=== PATIENT | female | born 1965 | race African-American/Black ===

== ENCOUNTER 2017-01-24 20:51 | Emergency (ER) | payer SELFPAY ==
[~2017-01-24] VITALS: Ht 157.5 cm; Wt 107.0 kg
[~2017-01-24 20:51] MED LIST: INSU100I11 SQ; INSU100V8 SQ
--- NOTE | 2017-01-24 20:53 | ED.ADGEN ---
Past History Past Medical History: No Pertinent History Past Surgical History: No Surgical History Smoking: Non-smoker Alcohol Use: None Drug Use: None Adult General Chief Complaint Chief Complaint Left foot pain [facility] HPI Patient is a 51 year old for can [place] female who presents with left foot pain. She states it started hurting when he 2 days ago. He states it hurts in the top aspect of her foot and maybe the medial aspect of her ankle. She denies any history of trauma. She has a change her shoes. She does have diabetes. She denies any fevers chills nausea or vomiting. She denies any rash. She thinks the top aspect of her foot is swollen. Review of Systems Review of Systems Constitutional: Denies fever or chills [] Eyes: Denies change in visual acuity, redness, or eye pain [] HENT: Denies nasal congestion or sore throat [] Respiratory: Denies cough or shortness of breath [] Cardiovascular: No additional information not addressed in HPI [] GI: Denies abdominal pain, nausea, vomiting, bloody stools or diarrhea [] : Denies dysuria or hematuria [] Musculoskeletal: Denies back pain, positive for left foot pain. Integument: Denies rash or skin lesions [] Neurologic: Denies headache, focal weakness or sensory changes [] Endocrine: Denies polyuria or polydipsia [] Allergies Allergies Allergies Coded Allergies Type Severity Reaction Last Updated Verified No Known Drug Allergies 01/24/17 No Physical Exam Physical Exam Constitutional: Well developed, well nourished, no acute distress, non-toxic appearance. [] HENT: Normocephalic, atraumatic, bilateral external ears normal, oropharynx moist, no oral exudates, nose normal. [] Eyes: PERRLA, EOMI, conjunctiva normal, no discharge. [] Neck: Normal range of motion, no tenderness, supple, no stridor. [] Cardiovascular:Heart rate regular rhythm, no murmur [] Lungs & Thorax: Bilateral breath sounds clear to auscultation [] Abdomen: Bowel sounds normal, soft, no tenderness, no masses, no pulsatile masses. [] Skin: Warm, dry, no erythema, no rash. [] Back: No tenderness, no CVA tenderness. [] Extremities: Tender to palpation on the dorsal surface of left foot and medial aspect of his left ankle, no ecchymosis, no erythema, no cyanosis, no clubbing, ROM intact, no edema. No calf tenderness or cords appreciated, dorsal pedis pulse 2+ bilaterally Neurologic: Alert and oriented X 3, normal motor function, normal sensory function, no focal deficits noted. [] Psychologic: Affect normal, judgement normal, mood normal. [] Current Patient Data Vital Signs Vital Signs Date Time Temp Pulse Resp B/P (MAP) Pulse Ox O2 Delivery O2 Flow Rate FiO2 01/24/17 21:00 97.9 85 18 99 Room Air EKG EKG [] Radiology/Procedures Radiology/Procedures Reviews of the left foot does not show any bony abnormalities, fractures, dislocations, foreign bodies, as interpreted by me. Course & Med Decision Making Course & Med Decision Making Pertinent Labs and Imaging studies reviewed. (See chart for details) X-rays did not show any acute abnormalities. We will discharge with [place] and a work no. Patient's follow-up primary care physician, return ER for fevers, rash , swelling or other concerns. Final Impression Final Impression Foot pain [] Problems: Dragon Disclaimer Dragon Disclaimer This electronic medical record was generated, in whole or in part, using a voice recognition dictation system. RUDY WOLFE MD Jan 24, 2017 20:52
[2017-01-24 21:00] VITALS: BP 169/92
[2017-01-24] MEDS ORDERED: ACET500T68 PO (21:22)
[2017-01-24] MEDS ORDERED: METF500T4 PO (21:22)
[2017-01-24] MEDS ORDERED: INSU100V13 SQ (21:22)
[2017-01-24] MEDS ORDERED: INSU100V31 SQ (21:22)
[2017-01-24] MEDS ORDERED: HYDR-971 PO (22:16)
[2017-01-24] MEDS ORDERED: HYDROcodon/IBUPROFEN 7.5/200MG 1 TAB TABLET PO ONE (23:00)
--- NOTE | 2017-01-25 07:39 | RAD ---
Indication: Left lateral foot pain. Time of exam 2159 hours. 3 views of the left foot were obtained. The metatarsals are intact. The phalanges are intact. Midfoot is unremarkable. There is a large plantar calcaneal spur. No fractures are seen. Impression: No acute bony abnormality is detected.
== END 2017-01-24 22:20 | disposition home or self-care (01) ==
LOC: ER 20:51
DX: M79.672 Pain in left foot (principal)
CPT/HCPCS: 73630; 99284

== ENCOUNTER 2018-05-10 21:35 | Emergency (ER) | payer OTHER ==
[~2018-05-10] VITALS: Ht 157.5 cm; Wt 106.2 kg
[2018-05-10 21:35] VITALS: BP 146/95
[~2018-05-10 21:35] MED LIST changes: +ACET500T68 PO; +HYDR-971 PO; +INSU100V13 SQ; +INSU100V31 SQ; +METF500T16 PO
[2018-05-10] MEDS ORDERED: CEPH-264 PO (22:55)
[2018-05-10] MEDS ORDERED: MUPI15CR TP (22:55)
[2018-05-10] MEDS ORDERED: CEPHALEXIN 250 MG CAPSULE PO ONE (23:30)
--- NOTE | 2018-05-11 00:25 | RAD ---
Three-view left foot radiographs 05/10/2018 Clinical history: Injury to left foot one week ago with pain. AP, lateral and oblique digital radiographs of the left foot were obtained. No fracture or dislocation of the left foot is seen. No radiopaque foreign body is noted. IMPRESSION: No fracture or dislocation left foot is seen. Electronically signed by: Paulo Burris MD (05/11/2018 12:21 AM) [facility]
--- NOTE | 2018-05-11 03:15 | ED.ADGEN ---
Past History Past Medical History: Asthma, Depression, Diabetes, Hypertension Past Surgical History: , Hysterectomy Smoking: Non-smoker Alcohol Use: None Drug Use: None Adult General Chief Complaint Chief Complaint Left foot pain HPI HPI Patient is a 52-year-old son dependent diabetic presents with left foot pain/ injury after dropping weight onto foot 2 weeks ago. Patient reports continued with ambulation soreness lateral foot/toes. Patient has not seen her PCP for her current symptoms. On exam, the patient soft tissue tenderness over third and fourth the tarsal phalangeal joints with bruising. I swelling in the erythema. Patient has cracking between toes possibly consistent and athlete's foot. No induration purulent drainage diabetic ulcers.[] Review of Systems Review of Systems Review symptoms as per history of present illness. All other review symptoms are negative.] All other systems were reviewed and found to be within normal limits, except as documented in this note. Current Medications Current Medications Current Medications Medications (Trade) Dose Ordered Sig/Arnel Start Time Stop Time Status Last Admin Dose Admin Cephalexin HCl (Keflex) 500 mg 1X ONCE 05/10/18 23:30 05/10/18 23:30 DC Allergies Allergies Allergies Coded Allergies Type Severity Reaction Last Updated Verified No Known Drug Allergies 01/24/17 No Physical Exam Physical Exam Constitutional: Well developed, well nourished, no acute distress, non-toxic appearance. [] HENT: Normocephalic, atraumatic, bilateral external ears normal, oropharynx moist, no oral exudates, nose normal.() Extremities: L Foot, soft tissue tenderness over third and fourth the tarsal phalangeal joints with bruising. Mild swelling in the erythema. No deformity, Patient has cracking between toes possibly consistent and athlete's foot. No induration purulent drainage diabetic ulcers[] Neurologic: Alert and oriented X 3, left foot, no motor weakness or loss of sensation.. [] Psychologic: Affect normal, judgement normal, mood normal. [] Current Patient Data Vital Signs Vital Signs Date Time Temp Pulse Resp B/P (MAP) Pulse Ox O2 Delivery O2 Flow Rate FiO2 05/10/18 21:35 97.2 92 20 97 Room Air EKG EKG [] Radiology/Procedures Radiology/Procedures [X-ray left foot: no fx.] Course & Med Decision Making Course & Med Decision Making Pertinent Labs and Imaging studies reviewed. (See chart for details) [Left foot injury w/o fx, concern for possible cellulitis. ] Final Impression Final Impression [1. left foot cellulitis] Dragattila Disclaimer Dragon Disclaimer This electronic medical record was generated, in whole or in part, using a voice recognition dictation system. HAILEY CESPEDES DO May 11, 2018 03:15
== END 2018-05-10 23:05 | disposition home or self-care (01) ==
LOC: ER 21:35
DX: L03.116 Cellulitis of left lower limb (principal); S90.122A Contusion of left lesser toe(s) without damage to nail, initial encounter; J45.909 Unspecified asthma, uncomplicated; E11.9 Type 2 diabetes mellitus without complications; I10 Essential (primary) hypertension; F32.9 Major depressive disorder, single episode, unspecified; W20.8XXA Other cause of strike by thrown, projected or falling object, initial encounter; Y93.89 Activity, other specified; Y92.89 Other specified places as the place of occurrence of the external cause; Y99.8 Other external cause status
CPT/HCPCS: 73630; 99284

== ENCOUNTER 2018-09-14 03:53 | Inpatient (IN) | payer OTHER ==
[2018-09-14] VITALS (9 sets, daily range): BP systolic 107–160; BP diastolic 65–99
[~2018-09-14] VITALS: Ht 157.5 cm; Wt 97.5 kg
[~2018-09-14 03:53] MED LIST changes: +CEPH-264 PO; +HYDR-3165 PO; -HYDR-971 PO; +MUPI15CR TP
--- NOTE | 2018-09-14 03:57 | ED.ADGEN ---
Past History Past Medical History: Asthma, Depression, Diabetes, Hypertension Past Surgical History: , Hysterectomy Smoking: Non-smoker Alcohol Use: None Drug Use: None Adult General Chief Complaint Chief Complaint "....I feel like am going to ... I am vomiting...my sugars are high ...my blood pressures high.. I feel terrible HPI HPI Patient is a 52 year old female [employer] [facility] who presents with above hx and complaints nausea, vomiting, hyperglycemia and accelerated HTN. Patient states she has been compliant with her diabetic medications and her diabetic diet. Is around ill individuals at the [employer] where she works. Patient states she has been also compliant with her hypertensive meds. They get a flu vaccination this fall. No recent travel.History of intake of bad food. Patient reports she vomited several times tonight and currently having dry heaves. She also had 3 episodes of diarrhea. Patient normally follows with at [facility] Patient has a known history of coronary artery disease, diabetes, hypertension, hyperlipidemia, and diabetic neuropathy. Review of Systems Review of Systems Constitutional: Complaints of fever Eyes: Denies change in visual acuity, redness, or eye pain [] HENT: Denies nasal congestion or sore throat [] Respiratory: Complaints of shortness of breath [] Cardiovascular: No additional information not addressed in HPI [] GI: Complaints abdominal pain, nausea, vomiting, : Denies dysuria or hematuria [] Musculoskeletal: Denies back pain or joint pain [] Integument: Denies rash or skin lesions [] Neurologic: Denies headache, focal weakness or sensory changes [] Endocrine: Hx polyuria or polydipsia [] All other systems were reviewed and found to be within normal limits, except as documented in this note. Family History Family History DM, HTN Current Medications Current Medications Current Medications Medications (Trade) Dose Ordered Sig/Arnel Start Time Stop Time Status Last Admin Dose Admin Acetaminophen (Tylenol) 650 mg PRN Q4HRS PRN 09/14/18 04:30 09/15/18 04:29 Clonidine HCl (Catapres Tts-2) 1 patch 1X ONCE 09/14/18 04:30 09/14/18 04:31 DC 09/14/18 04:35 1 PATCH Clonidine HCl (Catapres) 0.2 mg 1X ONCE 09/14/18 04:30 09/14/18 04:31 DC 09/14/18 04:36 0.2 MG Insulin Human Regular (HumuLIN R VIAL) 10 unit 1X ONCE 09/14/18 05:00 09/14/18 05:01 DC 09/14/18 04:39 10 UNIT Insulin Human Regular 150 unit/ Sodium Chloride 151.5 ml @ 0 mls/hr 1X ONCE 09/14/18 04:30 09/14/18 04:31 UNV Lactated Ringer's 1,000 ml @ 100 mls/hr Q10H 09/14/18 04:30 09/14/18 14:29 09/14/18 06:29 100 MLS/HR Magnesium Sulfate 50 ml @ 25 mls/hr 1X ONCE 09/14/18 06:00 09/14/18 07:59 09/14/18 06:24 25 MLS/HR Ondansetron HCl (Zofran) 4 mg PRN Q4HRS PRN 09/14/18 04:30 09/15/18 04:29 Sodium Chloride 1,000 ml @ 1,000 mls/hr 1X ONCE 09/14/18 06:00 09/14/18 06:59 DC 09/14/18 05:47 1,000 MLS/HR See nursing for home meds Allergies Allergies Allergies Coded Allergies Type Severity Reaction Last Updated Verified No Known Drug Allergies 01/24/17 No Physical Exam Physical Exam Constitutional: in acute distress, non-toxic appearance. [] HENT: Normocephalic, atraumatic, bilateral external ears normal, oropharynx dry , no oral exudates, nose normal. [] Eyes: PERRLA, EOMI, conjunctiva normal, no discharge. [] Neck: Normal range of motion, no tenderness, supple, no stridor. [] Cardiovascular:Tachycardia Heart rate regular rhythm, no murmur []PMI to Lt. Lungs & Thorax: Bilateral breath sounds equal at apexes with scattered wheezes on auscultation [] Abdomen: Bowel sounds hyperactive, soft, generalized tenderness, no masses, no pulsatile masses. [Obese. Old scar. Skin: Warm, dry, no erythema, no rash. [] Back: No tenderness, no CVA tenderness. [] Extremities: No tenderness, no cyanosis, no clubbing, ROM intact, trace ankle edema. [] Neurologic: Alert and oriented X 3, normal motor function, normal sensory function, no focal deficits noted. Decreased plantar sensation. Psychologic: Affect anxious, judgement normal, mood depressed. Current Patient Data Vital Signs Vital Signs Date Time Temp Pulse Resp B/P (MAP) Pulse Ox O2 Delivery O2 Flow Rate FiO2 09/14/18 07:11 93 18 137/72 (93) 96 Room Air 09/14/18 04:05 98.4 Lab Results Laboratory Tests Test 09/14/18 04:10 09/14/18 04:16 09/14/18 04:17 09/14/18 04:42 Influenza Type A (Rapid) Negative (NEGATIVE) Influenza Type B (Rapid) Negative (NEGATIVE) White Blood Count 10.6 x10^3/uL (4.0-11.0) Red Blood Count 5.73 x10^6/uL (3.50-5.40) H Hemoglobin 15.2 g/dL (12.0-15.5) Hematocrit 45.7 % (36.0-47.0) Mean Corpuscular Volume 80 fL (79-100) Mean Corpuscular Hemoglobin 27 pg (25-35) Mean Corpuscular Hemoglobin Concent 33 g/dL (31-37) Red Cell Distribution Width 12.8 % (11.5-14.5) Platelet Count 297 x10^3/uL (140-400) Neutrophils (%) (Auto) 75 % (31-73) H Lymphocytes (%) (Auto) 17 % (24-48) L Monocytes (%) (Auto) 8 % (0-9) Eosinophils (%) (Auto) 1 % (0-3) Basophils (%) (Auto) 1 % (0-3) Neutrophils # (Auto) 7.9 x10^3uL (1.8-7.7) H Lymphocytes # (Auto) 1.7 x10^3/uL (1.0-4.8) Monocytes # (Auto) 0.8 x10^3/uL (0.0-1.1) Eosinophils # (Auto) 0.1 x10^3/uL (0.0-0.7) Basophils # (Auto) 0.0 x10^3/uL (0.0-0.2) Prothrombin Time 10.0 SEC (9.4-11.4) Prothrombin Time INR 1.0 (0.9-1.1) PTT 24 SEC (23-33) D-Dimer (Donna) 0.20 mg/L (0.00-0.50) Maternal Serum HCG Beta Subunit 2 mIU/mL (0-6) Sodium Level 133 mmol/L (136-145) L Potassium Level 3.7 mmol/L (3.5-5.1) Chloride Level 94 mmol/L (98-107) L Carbon Dioxide Level 27 mmol/L (21-32) Anion Gap 12 (6-14) Blood Urea Nitrogen 11 mg/dL (7-20) Creatinine 0.9 mg/dL (0.6-1.0) Estimated GFR (Cockcroft-Gault) 80.2 Glucose Level 407 mg/dL (70-99) H Calcium Level 9.5 mg/dL (8.5-10.1) Magnesium Level 1.7 mg/dL (1.8-2.4) L Total Bilirubin 0.4 mg/dL (0.2-1.0) Direct Bilirubin 0.1 mg/dL (0.0-0.2) Aspartate Amino Transferase (AST) 15 U/L (15-37) Alanine Aminotransferase (ALT) 44 U/L (14-59) Alkaline Phosphatase 113 U/L (46-116) Creatine Kinase 93 U/L (26-192) Creatine Kinase MB (Mass) 0.7 ng/mL (0.0-3.6) Creatine Kinase MB Relative Index 0.8 % (0-4) Troponin I Quantitative < 0.017 ng/mL (0-0.055) KJ-Zvy-[id number]-Type Natriuretic Peptide 55 pg/mL (0-124) Total Protein 8.4 g/dL (6.4-8.2) H Albumin 3.8 g/dL (3.4-5.0) Lipase 80 U/L (73-393) Glucose (Fingerstick) 404 mg/dL (70-99) H Lactic Acid Level 3.2 mmol/L (0.4-2.0) H Test 09/14/18 06:08 09/14/18 06:58 Glucose (Fingerstick) 271 mg/dL (70-99) H 225 mg/dL (70-99) H EKG EKG I interpretation EKG shows a sinus rhythm at 94 bpm. No acute morphology appreciated.[] Radiology/Procedures Radiology/Procedures My interpretation of acute abdomen film shows no free air in the diaphragm. No significant cardiopulmonary changes. Nonspecific bowel gas pattern. Does have stool in right colon.[] Course & Med Decision Making Course & Med Decision Making Pertinent Labs and Imaging studies reviewed. (See chart for details) Discussed presentation, testing and tx. plan with Dr. Cain. Will admit for hydration and further tx. [] Final Impression Final Impression 1. Nausea and Vomiting 2. Accelerated Hypertension 3. DM - Hyperglycemia[] 404 glu 4. Abdomen Pain 5. Hypo-magnesium 1.7 6. Elevated Lactic Acid Dragon Disclaimer Dragon Disclaimer This electronic medical record was generated, in whole or in part, using a voice recognition dictation system. Dragon Disclaimer This chart was dictated in whole or in part using Voice Recognition software in a busy, high-work load, and often noisy Emergency Department environment. It may contain unintended and wholly unrecognized errors or omissions. Dragon Disclaimer This chart was dictated in whole or in part using Voice Recognition software in a busy, high-work load, and often noisy Emergency Department environment. It may contain unintended and wholly unrecognized errors or omissions. Discharge Summary Brief Hospital Course Allergies Allergies Coded Allergies Type Severity Reaction Last Updated Verified No Known Drug Allergies 01/24/17 No Vital Signs Vital Signs Date Time Temp Pulse Resp B/P (MAP) Pulse Ox O2 Delivery O2 Flow Rate FiO2 09/14/18 07:11 93 18 137/72 (93) 96 Room Air 09/14/18 04:05 98.4 Lab Results Laboratory Tests Test 09/14/18 04:10 09/14/18 04:16 09/14/18 04:17 09/14/18 04:42 Influenza Type A (Rapid) Negative (NEGATIVE) Influenza Type B (Rapid) Negative (NEGATIVE) White Blood Count 10.6 x10^3/uL (4.0-11.0) Red Blood Count 5.73 x10^6/uL (3.50-5.40) Hemoglobin 15.2 g/dL (12.0-15.5) Hematocrit 45.7 % (36.0-47.0) Mean Corpuscular Volume 80 fL (79-100) Mean Corpuscular Hemoglobin 27 pg (25-35) Mean Corpuscular Hemoglobin Concent 33 g/dL (31-37) Red Cell Distribution Width 12.8 % (11.5-14.5) Platelet Count 297 x10^3/uL (140-400) Neutrophils (%) (Auto) 75 % (31-73) Lymphocytes (%) (Auto) 17 % (24-48) Monocytes (%) (Auto) 8 % (0-9) Eosinophils (%) (Auto) 1 % (0-3) Basophils (%) (Auto) 1 % (0-3) Neutrophils # (Auto) 7.9 x10^3uL (1.8-7.7) Lymphocytes # (Auto) 1.7 x10^3/uL (1.0-4.8) Monocytes # (Auto) 0.8 x10^3/uL (0.0-1.1) Eosinophils # (Auto) 0.1 x10^3/uL (0.0-0.7) Basophils # (Auto) 0.0 x10^3/uL (0.0-0.2) Prothrombin Time 10.0 SEC (9.4-11.4) Prothromb Time International Ratio 1.0 (0.9-1.1) Activated Partial Thromboplast Time 24 SEC (23-33) D-Dimer (Donna) 0.20 mg/L (0.00-0.50) Maternal Serum HCG Beta Subunit 2 mIU/mL (0-6) Sodium Level 133 mmol/L (136-145) Potassium Level 3.7 mmol/L (3.5-5.1) Chloride Level 94 mmol/L (98-107) Carbon Dioxide Level 27 mmol/L (21-32) Anion Gap 12 (6-14) Blood Urea Nitrogen 11 mg/dL (7-20) Creatinine 0.9 mg/dL (0.6-1.0) Estimated GFR (Cockcroft-Gault) 80.2 Glucose Level 407 mg/dL (70-99) Calcium Level 9.5 mg/dL (8.5-10.1) Magnesium Level 1.7 mg/dL (1.8-2.4) Total Bilirubin 0.4 mg/dL (0.2-1.0) Direct Bilirubin 0.1 mg/dL (0.0-0.2) Aspartate Amino Transf (AST/SGOT) 15 U/L (15-37) Alanine Aminotransferase (ALT/SGPT) 44 U/L (14-59) Alkaline Phosphatase 113 U/L (46-116) Creatine Kinase 93 U/L (26-192) Creatine Kinase MB (Mass) 0.7 ng/mL (0.0-3.6) Creatine Kinase MB Relative Index 0.8 % (0-4) Troponin I Quantitative < 0.017 ng/mL (0-0.055) OS-Uvx-F-Type Natriuretic Peptide 55 pg/mL (0-124) Total Protein 8.4 g/dL (6.4-8.2) Albumin 3.8 g/dL (3.4-5.0) Lipase 80 U/L (73-393) Glucose (Fingerstick) 404 mg/dL (70-99) Lactic Acid Level 3.2 mmol/L (0.4-2.0) Test 09/14/18 06:08 09/14/18 06:58 Glucose (Fingerstick) 271 mg/dL (70-99) 225 mg/dL (70-99) Brief Hospital Course Ms. Espino is a 52 old female who presented with Hyperglycemia, Accelerated HTN, - Admitted to Dr. Cain Discharge Information Condition at Discharge: Improved, Stable Dischare Medications Current Medications Lactated Ringer's 1,000 ml @ 100 mls/hr Q10H IV Last administered on at 06:29; Admin Dose 100 MLS/HR; Start 09/14/18 at 04:30; Stop 09/14/18 at 14: 29 Ondansetron HCl (Zofran) 4 mg 1X ONCE IV Last administered on 09/14/18at 04:36 ; Admin Dose 4 MG; Start 09/14/18 at 04:30; Stop 09/14/18 at 04:31; Status DC Clonidine HCl (Catapres) 0.2 mg 1X ONCE PO Last administered on 09/14/18at 04: 36; Admin Dose 0.2 MG; Start 09/14/18 at 04:30; Stop 09/14/18 at 04:31; Status DC Clonidine HCl (Catapres Tts-2) 1 patch 1X ONCE TD Last administered on at 04:35; Admin Dose 1 PATCH; Start 09/14/18 at 04:30; Stop 09/14/18 at 04:31 ; Status DC Insulin Human Regular 150 unit/ Sodium Chloride 151.5 ml @ 0 mls/hr 1X ONCE IV Last administered on 09/14/18at 05:03; Admin Dose 4 MLS/HR; Start 09/14/18 at 05:00; Stop 09/14/18 at 05:01; Status DC Insulin Human Regular (HumuLIN R VIAL) 10 unit 1X ONCE IV Last administered on 09/14/18at 04:39; Admin Dose 10 UNIT; Start 09/14/18 at 05:00; Stop 09/14/18 at 05:01; Status DC Ondansetron HCl (Zofran) 4 mg PRN Q4HRS PRN IV NAUSEA/VOMITING; Start 09/14/18 at 04:30; Stop 09/15/18 at 04:29 Acetaminophen (Tylenol) 650 mg PRN Q4HRS PRN PO FEVER; Start 09/14/18 at 04:30 ; Stop 09/15/18 at 04:29 Insulin Human Regular 150 unit/ Sodium Chloride 151.5 ml @ 0 mls/hr 1X ONCE IV ; Start 09/14/18 at 04:30; Stop 09/14/18 at 04:31; Status UNV Sodium Chloride 1,000 ml @ 1,000 mls/hr 1X STAT IV Last administered on at 04:34; Admin Dose 5 MLS/HR; Start 09/14/18 at 04:30; Stop 09/14/18 at 04:37 ; Status DC Sodium Chloride 1,000 ml @ 1,000 mls/hr 1X ONCE IV Last administered on at 04:41; Admin Dose 1,000 MLS/HR; Start 09/14/18 at 04:45; Stop 09/14/18 at 05:44; Status DC Sodium Chloride 150 ml @ As Directed STK-MED ONCE .ROUTE ; Start 09/14/18 at 04 :47; Stop 09/14/18 at 04:49; Status DC Sodium Chloride 1,000 ml @ 1,000 mls/hr 1X ONCE IV Last administered on at 05:47; Admin Dose 1,000 MLS/HR; Start 09/14/18 at 06:00; Stop 09/14/18 at 06:59; Status DC Magnesium Sulfate 50 ml @ 25 mls/hr 1X ONCE IV Last administered on 09/14/18at 06:24; Admin Dose 25 MLS/HR; Start 09/14/18 at 06:00; Stop 09/14/18 at 07:59 Active Scripts Active Bactroban (Mupirocin Calcium) 15 Gm Cream..g. 1 Cecile TP TID Keflex (Cephalexin) 500 Mg Capsule 1 Cap PO TID [place] 5-325 Tablet (Hydrocodone Bit/Acetaminophen) 1 Each Tablet 1-2 Tab PO Q6HRS PRN Reported Acetaminophen 500 Mg Tablet 1,000 Mg PO Q6HRS PRN Metformin Hcl 500 Mg Tablet 500 Mg PO BIDWMEALS Levemir (Insulin Detemir) 100 Unit/1 Ml Vial 50 Unit SQ HS Novolog (Insulin Aspart) 100 Unit/1 Ml Vial 30 Unit SQ TIDAC Discharge Summary Brief Hospital Course Allergies Allergies Coded Allergies Type Severity Reaction Last Updated Verified No Known Drug Allergies 01/24/17 No Vital Signs Vital Signs Date Time Temp Pulse Resp B/P (MAP) Pulse Ox O2 Delivery O2 Flow Rate FiO2 09/14/18 07:11 93 18 137/72 (93) 96 Room Air 09/14/18 04:05 98.4 Lab Results Laboratory Tests Test 09/14/18 04:10 09/14/18 04:16 09/14/18 04:17 09/14/18 04:42 Influenza Type A (Rapid) Negative (NEGATIVE) Influenza Type B (Rapid) Negative (NEGATIVE) White Blood Count 10.6 x10^3/uL (4.0-11.0) Red Blood Count 5.73 x10^6/uL (3.50-5.40) Hemoglobin 15.2 g/dL (12.0-15.5) Hematocrit 45.7 % (36.0-47.0) Mean Corpuscular Volume 80 fL (79-100) Mean Corpuscular Hemoglobin 27 pg (25-35) Mean Corpuscular Hemoglobin Concent 33 g/dL (31-37) Red Cell Distribution Width 12.8 % (11.5-14.5) Platelet Count 297 x10^3/uL (140-400) Neutrophils (%) (Auto) 75 % (31-73) Lymphocytes (%) (Auto) 17 % (24-48) Monocytes (%) (Auto) 8 % (0-9) Eosinophils (%) (Auto) 1 % (0-3) Basophils (%) (Auto) 1 % (0-3) Neutrophils # (Auto) 7.9 x10^3uL (1.8-7.7) Lymphocytes # (Auto) 1.7 x10^3/uL (1.0-4.8) Monocytes # (Auto) 0.8 x10^3/uL (0.0-1.1) Eosinophils # (Auto) 0.1 x10^3/uL (0.0-0.7) Basophils # (Auto) 0.0 x10^3/uL (0.0-0.2) Prothrombin Time 10.0 SEC (9.4-11.4) Prothromb Time International Ratio 1.0 (0.9-1.1) Activated Partial Thromboplast Time 24 SEC (23-33) D-Dimer (Donna) 0.20 mg/L (0.00-0.50) Maternal Serum HCG Beta Subunit 2 mIU/mL (0-6) Sodium Level 133 mmol/L (136-145) Potassium Level 3.7 mmol/L (3.5-5.1) Chloride Level 94 mmol/L (98-107) Carbon Dioxide Level 27 mmol/L (21-32) Anion Gap 12 (6-14) Blood Urea Nitrogen 11 mg/dL (7-20) Creatinine 0.9 mg/dL (0.6-1.0) Estimated GFR (Cockcroft-Gault) 80.2 Glucose Level 407 mg/dL (70-99) Calcium Level 9.5 mg/dL (8.5-10.1) Magnesium Level 1.7 mg/dL (1.8-2.4) Total Bilirubin 0.4 mg/dL (0.2-1.0) Direct Bilirubin 0.1 mg/dL (0.0-0.2) Aspartate Amino Transf (AST/SGOT) 15 U/L (15-37) Alanine Aminotransferase (ALT/SGPT) 44 U/L (14-59) Alkaline Phosphatase 113 U/L (46-116) Creatine Kinase 93 U/L (26-192) Creatine Kinase MB (Mass) 0.7 ng/mL (0.0-3.6) Creatine Kinase MB Relative Index 0.8 % (0-4) Troponin I Quantitative < 0.017 ng/mL (0-0.055) OB-Jem-U-Type Natriuretic Peptide 55 pg/mL (0-124) Total Protein 8.4 g/dL (6.4-8.2) Albumin 3.8 g/dL (3.4-5.0) Lipase 80 U/L (73-393) Glucose (Fingerstick) 404 mg/dL (70-99) Lactic Acid Level 3.2 mmol/L (0.4-2.0) Test 09/14/18 06:08 09/14/18 06:58 Glucose (Fingerstick) 271 mg/dL (70-99) 225 mg/dL (70-99) Brief Hospital Course Ms. Espino is a 52 old female who presented with accelerated HTN, [place], Hyperglycemia.. Admitted to Dr. Cain. Discharge Information Condition at Discharge: Improved, Stable Dischare Medications Current Medications Lactated Ringer's 1,000 ml @ 100 mls/hr Q10H IV Last administered on at 06:29; Admin Dose 100 MLS/HR; Start 09/14/18 at 04:30; Stop 09/14/18 at 14: 29 Ondansetron HCl (Zofran) 4 mg 1X ONCE IV Last administered on 09/14/18at 04:36 ; Admin Dose 4 MG; Start 09/14/18 at 04:30; Stop 09/14/18 at 04:31; Status DC Clonidine HCl (Catapres) 0.2 mg 1X ONCE PO Last administered on 09/14/18at 04: 36; Admin Dose 0.2 MG; Start 09/14/18 at 04:30; Stop 09/14/18 at 04:31; Status DC Clonidine HCl (Catapres Tts-2) 1 patch 1X ONCE TD Last administered on at 04:35; Admin Dose 1 PATCH; Start 09/14/18 at 04:30; Stop 09/14/18 at 04:31 ; Status DC Insulin Human Regular 150 unit/ Sodium Chloride 151.5 ml @ 0 mls/hr 1X ONCE IV Last administered on 09/14/18at 05:03; Admin Dose 4 MLS/HR; Start 09/14/18 at 05:00; Stop 09/14/18 at 05:01; Status DC Insulin Human Regular (HumuLIN R VIAL) 10 unit 1X ONCE IV Last administered on 09/14/18at 04:39; Admin Dose 10 UNIT; Start 09/14/18 at 05:00; Stop 09/14/18 at 05:01; Status DC Ondansetron HCl (Zofran) 4 mg PRN Q4HRS PRN IV NAUSEA/VOMITING; Start 09/14/18 at 04:30; Stop 09/15/18 at 04:29 Acetaminophen (Tylenol) 650 mg PRN Q4HRS PRN PO FEVER; Start 09/14/18 at 04:30 ; Stop 09/15/18 at 04:29 Insulin Human Regular 150 unit/ Sodium Chloride 151.5 ml @ 0 mls/hr 1X ONCE IV ; Start 09/14/18 at 04:30; Stop 09/14/18 at 04:31; Status UNV Sodium Chloride 1,000 ml @ 1,000 mls/hr 1X STAT IV Last administered on at 04:34; Admin Dose 5 MLS/HR; Start 09/14/18 at 04:30; Stop 09/14/18 at 04:37 ; Status DC Sodium Chloride 1,000 ml @ 1,000 mls/hr 1X ONCE IV Last administered on at 04:41; Admin Dose 1,000 MLS/HR; Start 09/14/18 at 04:45; Stop 09/14/18 at 05:44; Status DC Sodium Chloride 150 ml @ As Directed STK-MED ONCE .ROUTE ; Start 09/14/18 at 04 :47; Stop 09/14/18 at 04:49; Status DC Sodium Chloride 1,000 ml @ 1,000 mls/hr 1X ONCE IV Last administered on at 05:47; Admin Dose 1,000 MLS/HR; Start 09/14/18 at 06:00; Stop 09/14/18 at 06:59; Status DC Magnesium Sulfate 50 ml @ 25 mls/hr 1X ONCE IV Last administered on 09/14/18at 06:24; Admin Dose 25 MLS/HR; Start 09/14/18 at 06:00; Stop 09/14/18 at 07:59 Active Scripts Active Bactroban (Mupirocin Calcium) 15 Gm Cream..g. 1 Cecile TP TID Keflex (Cephalexin) 500 Mg Capsule 1 Cap PO TID [place] 5-325 Tablet (Hydrocodone Bit/Acetaminophen) 1 Each Tablet 1-2 Tab PO Q6HRS PRN Reported Acetaminophen 500 Mg Tablet 1,000 Mg PO Q6HRS PRN Metformin Hcl 500 Mg Tablet 500 Mg PO BIDWMEALS Levemir (Insulin Detemir) 100 Unit/1 Ml Vial 50 Unit SQ HS Novolog (Insulin Aspart) 100 Unit/1 Ml Vial 30 Unit SQ TIDAC SRUTHI WEBB MD Sep 14, 2018 03:57
[2018-09-14] MEDS: IV RINGERS SOLUTION,LACTATED 1,000 ML IV SCH ×2 (04:25→06:29)
[2018-09-14] MEDS ORDERED: IV NORMAL SALINE 1,000ML 1,000 ML IV STA (04:30)
[2018-09-14] MEDS ORDERED: ONDANSETRON PF 4 MG/2 ML VIAL. IV ONE (04:30)
[2018-09-14] MEDS ORDERED: INSULIN REGULAR VIAL 150 UNIT in 0.9 % SODIUM CHLORIDE 150ML 150 ML IV ONE ×2 (04:30→05:00)
[2018-09-14] MEDS ORDERED: ONDANSETRON PF 4 MG/2 ML VIAL. IV PRN ×2 (04:30→08:30)
[2018-09-14] MEDS ORDERED: ACETAMINOPHEN 325 MG TABLET PO PRN (04:30)
[2018-09-14] MEDS ORDERED: cloNIDine HCL 0.1 MG TABLET PO ONE (04:30)
[2018-09-14] MEDS ORDERED: cloNIDine TTS-2 1 PATCH PATCH TD ONE (04:30)
[2018-09-14 04:37] LABS: BASO % 1 % (0-3); EOS # 0.1 x10^3/uL (0.0-0.7); EOS % 1 % (0-3); HEMATOCRIT 45.7 % (36.0-47.0); HEMOGLOBIN 15.2 g/dL (12.0-15.5); LYMPH # 1.7 x10^3/uL (1.0-4.8); LYMPH % 17 % (24-48); MEAN CORPUSCULAR HEMOGLOBIN 27 pg (25-35); MEAN CORPUSCULAR HGB CONC 33 g/dL (31-37); MEAN CORPUSCULAR VOLUME 80 fL (79-100); MONO # 0.8 x10^3/uL (0.0-1.1); MONO % 8 % (0-9); NEUT # 7.9 x10^3uL (1.8-7.7); NEUT % 75 % (31-73); PLATELET COUNT 297 x10^3/uL (140-400); RED BLOOD COUNT 5.73 x10^6/uL (3.50-5.40); RED CELL DISTRIBUTION WIDTH 12.8 % (11.5-14.5); WHITE BLOOD COUNT 10.6 x10^3/uL (4.0-11.0)
[2018-09-14] MEDS ORDERED: IV NORMAL SALINE 1,000ML 1,000 ML IV ONE ×2 (04:45→06:00)
[2018-09-14] MEDS ORDERED: 0.9 % SODIUM CHLORIDE 150ML 150 ML ONE (04:47)
[2018-09-14 05:00] LABS: ALBUMIN 3.8 g/dL (3.4-5.0); CALCIUM 9.5 mg/dL (8.5-10.1); CREATININE 0.9 mg/dL (0.6-1.0); DIRECT BILIRUBIN 0.1 mg/dL (0.0-0.2); GFR 80.2; MAGNESIUM 1.7 mg/dL (1.8-2.4); POTASSIUM 3.7 mmol/L (3.5-5.1); TOTAL BILIRUBIN 0.4 mg/dL (0.2-1.0); TOTAL PROTEIN 8.4 g/dL (6.4-8.2)
[2018-09-14] MEDS ORDERED: INSULIN REGULAR 100 UNIT/ML 3ML VIAL. IV ONE (05:00)
[2018-09-14 05:01] LABS: INFLUENZA A PATIENT NEGATIVE (NEGATIVE); INFLUENZA B PATIENT NEGATIVE (NEGATIVE)
[2018-09-14] MEDS ORDERED: MAGNESIUM SULFATE 2GM 50 ML IV ONE (06:00)
--- NOTE | 2018-09-14 07:47 | RAD ---
Acute abdominal series with single view chest 09/14/2018 4:51 AM INDICATION: Abdominal pain, nausea and vomiting COMPARISON: None available TECHNIQUE: Upright view of the chest, upright view of the abdomen and supine view of abdomen are provided. FINDINGS: The cardiomediastinal silhouette is within normal limits. There are no pleural effusions. There is no pulmonary vascular congestion. There is no pneumothorax. The lungs are clear. No significant osseous abnormality is identified. There is no free intraperitoneal air. There are no dilated loops of small or large bowel. No differential air-fluid levels are identified. Phleboliths are identified within the pelvis. There is no organomegaly. No suspicious calcifications are identified. IMPRESSION: No acute cardiopulmonary process. Nonobstructive bowel gas pattern. Electronically signed by: Bekah Sandhu MD (09/14/2018 7:43 AM) [facility]
[2018-09-14] MEDS ORDERED: METOCLOPRAMIDE HCL 10 MG/2 ML VIAL. IV PRN (08:30)
[2018-09-14] MEDS ORDERED: INSULIN REGULAR VIAL 150 UNIT in 0.9 % SODIUM CHLORIDE 150ML 150 ML IV PRN (08:30)
[2018-09-14 09:08] LABS: CALCIUM 8.7 mg/dL (8.5-10.1); CREATININE 0.7 mg/dL (0.6-1.0); GFR 107.2
[2018-09-14] MEDS: POTASSIUM CL 40MEQ D5-0.45NACL 1,000 ML IV SCH ×3 (09:09→19:59)
[2018-09-14 09:11] LABS: AMPHETAMINE/METHAMPHETAMINE NEG (NEG); BARBITURATES NEG (NEG); BENZODIAZEPINES NEG (NEG); CANNABINOIDS NEG (NEG); COCAINE NEG (NEG); METHADONE NEG (NEG); OPIATES NEG (NEG); PHENCYCLIDINE NEG (NEG)
[2018-09-14 09:40] LABS: CLARITY,URINE HAZY; COLOR,URINE YELLOW; GLUCOSE,URINE >=1000 mg/dL (NEG)
[2018-09-14 09:41] LABS: BILIRUBIN,URINE NEG (NEG); NITRITE,URINE NEG (NEG); RBC,URINE RARE /HPF (0-2); UROBILINOGEN,URINE 0.2 mg/dL (0.2 mg/dL)
[2018-09-14 09:42] LABS: BACTERIA,URINE FEW /HPF (0-FEW); SQUAMOUS EPITHELIAL CELL,UR FEW /LPF; WBC,URINE RARE /HPF (0-4)
[2018-09-14 09:43] LABS: YEAST,URINE PRESENT /HPF
[2018-09-14] MEDS ORDERED: ANTI-COAG MONITOR BY PHARMACY. MC PRN (11:00)
[2018-09-14] MEDS ORDERED: ALBU2.5V8 INH (13:55)
[2018-09-14] MEDS ORDERED: ATOR40TA59 PO (13:55)
[2018-09-14] MEDS ORDERED: SERT100T PO (13:55)
[2018-09-14] MEDS ORDERED: INSU100V13 SQ (13:55)
[2018-09-14] MEDS ORDERED: ASPI-630 PO (13:55)
[2018-09-14] MEDS ORDERED: INSU100I17 SQ (13:55)
[2018-09-14] MEDS ORDERED: GLYB5TAB3 PO (13:55)
[2018-09-14] MEDS ORDERED: LISI1TAB3 PO (13:55)
[2018-09-14] MEDS ORDERED: SITA1TAB7 PO (13:55)
--- NOTE | 2018-09-14 15:43 | EKG ---
[address] [address] Test Date: 2018-09-14 Test Time: 04:30:24 Pat Name: MIGUEL VERA Department: Room: Gender: F [employer]: : [id number] Requested By: SRUTHI WEBB Order Number: [id number] Reading MD: Measurements Intervals [place] Rate: 94 P: 7 ME: 132 QRS: 24 QRSD: 82 T: 28 QT: 368 QTc: 466 Interpretive Statements SINUS RHYTHM NORMAL ECG RI6.01 No previous ECG available for comparison
--- NOTE | 2018-09-14 16:46 | HP ---
ADMIT DATE: 09/14/2018 HISTORY OF PRESENT ILLNESS: The patient is a 52-year-old -Maltese female patient who presented to the Emergency Room with a complaint of recurrent bouts of nausea, vomiting as well as diarrhea. She said that she vomited when she ate her dinner around 9:30 and at around 11:30, she started having abdominal pain and has had nausea, vomiting. She vomited about 8 times and had 2 episodes of diarrhea. She also complained of abdominal pain. Her blood sugar was extremely high and also was found to have accelerated hypertension. 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 She has also been compliant with her antihypertensive medication. Did have a flu vaccine this fall. No recent travel history or intake of bad food or ill contacts. Her daughter and her boyfriend did not have any similar problems. She normally follows at [facility] [place]. She was evaluated in the Emergency Room and was found to have hyperglycemia. Her urinalysis and toxic screen was negative. Her influenza A and B were negative. She was tested positive for MRSA by nasal screen and was admitted with recurrent bouts of nausea, vomiting, accelerated hypertension, hyperglycemia with a blood sugar of 404 and lactic acidosis. She was started on insulin drip as well as IV fluid, was treated also with ondansetron and Reglan to control her nausea and hyperglycemia. She was also given 2 grams of magnesium sulfate as well as clonidine patch to control her blood pressure. PAST MEDICAL HISTORY: Significant for type 2 diabetes that is insulin requiring; hypertension, hyperlipidemia and peripheral neuropathy. PAST SURGICAL HISTORY: Significant for 3 C-sections, total abdominal hysterectomy. She also underwent a left heart catheterization. Apparently, her coronaries showed no significant coronary artery disease. ALLERGIES: She has no known drug allergies. MEDICATIONS: She is currently on following medications: She is on albuterol sulfate 1 puff q.6 hours, atorvastatin 40 mg at bedtime, lisinopril/hydrochlorothiazide 10/12.5 mg once a day, aspirin 81 mg once a day, sertraline 100 mg daily, sitagliptin/metformin 50/500 one tablet daily, insulin NovoLog 40 units before meals and insulin detemir 6 units at bedtime. She is on glyburide 10 mg twice a day. FAMILY HISTORY: She has 1 brother and 2 sisters older and all have myocardial infarction. Her mother is still alive at age of 70 is known to have coronary artery disease, apparently has had first episode of a heart attack when she was in her 50s. Her father at age of 63 and has first heart attack at age of 44. SOCIAL HISTORY: She is , has 2 sons and 1 daughter. He is nonsmoker. Does not drink alcohol or use any drugs. She is an [employer]. REVIEW OF SYSTEMS: The patient denied any blurring of vision, cataract, glaucoma or macular degeneration. Denied any earache, tinnitus or sensorineural deafness. Denied any nosebleeds, stuffy nose or postnasal drip. Denied any sore throat, sore tongue, toothache, hoarseness of voice or difficulty swallowing. Did have multiple episodes of nausea, vomiting as well as diarrhea, but denied any hematemesis, melena or hematochezia. Denied any dysuria, frequency or hematuria. Denied any chest pain, shortness of breath, orthopnea, paroxysmal nocturnal dyspnea. Denied any cough, phlegm or hemoptysis. PHYSICAL EXAMINATION: GENERAL: On arrival to the Emergency Room, the patient was slightly tachypneic, but there is no pallor, jaundice, cyanosis, or thyromegaly. No jugular venous distension. No limb edema. VITAL SIGNS: Her heart rate was 90, blood pressure was 176/86, temperature was 98.4, respiratory rate was 20, and oxygen saturation 100% on room air. HEENT: Showed normocephalic, atraumatic. NECK: Supple. HEART: Showed normal first and second heart sounds. No gallop, rub or murmur. CHEST: Clear to auscultation. No crepitation or rhonchi. ABDOMEN: Distended, soft, nontender. NEUROLOGIC: She was awake, alert, responding appropriately. All cranial nerves are intact. EXTREMITIES: She moves extremities without difficulty. She ambulates without assistance or assistive devices. She has very prominent ____ her toes, more so in the left foot than the right. LABORATORY DATA: Showed a white cell count of 10,600, hemoglobin 15, hematocrit 45, MCV 80 and platelet count 297,000 with normal manual differential. Her chemistry showed a serum sodium 133, potassium 3.7, chloride 94, bicarbonate 27, anion gap of 12, BUN 11, creatinine 0.9, estimated GFR was 80 mL per minute. Her glucose is 407, calcium was 9.5, magnesium was 1.7. Total bilirubin, AST, ALT, alkaline phosphatase were normal. Total protein 8.4, albumin was 3.8. Her prothrombin time was 10, INR 1, aPTT was 24. Urinalysis was essentially unremarkable and toxic screen was negative for opiates, methadone, barbiturates, phencyclidine, amphetamine, benzodiazepine, cocaine, cannabinoids as well as ethyl alcohol and her nasal screen for MRSA PCR was negative. Her test was negative and her hepatitis serology as well as influenza A and B were all negative. IMPRESSION: In summary, this is a 52-year-old -Maltese female patient who came with recurrent bouts of nausea, vomiting and diarrhea. She was found to be poorly controlled diabetes, has also accelerated hypertension. Will continue with IV fluids and the insulin drip. Once her symptoms nausea and vomiting diarrhea subsides, we can switch back to her scheduled insulin before meals and at bedtime. CHATA SHEPARD MD DR: RACHEL/donis JOB#: [id number] / [id number]
[2018-09-14] MEDS ORDERED: DEXTROSE 50% 25 GM / 50ML DISP.SYRIN. IV PRN (17:45)
[2018-09-14] MEDS ORDERED: INSULIN LISPRO 300 UNITS/3 ML INSULN.PEN. SQ ONE (18:00)
[2018-09-14] MEDS ORDERED: ATORVASTATIN CALCIUM 20 MG TABLET PO SCH (21:00)
[2018-09-14] MEDS ORDERED: INSULIN GLARGINE 300 UNITS/3 ML INSULN.PEN. SQ SCH (21:00)
[2018-09-15] VITALS: BP 125/74
[2018-09-15] MEDS: POTASSIUM CL 40MEQ D5-0.45NACL 1,000 ML IV SCH ×2 (01:54→07:20)
[2018-09-15 04:00] VITALS: BP 119/74
[2018-09-15 07:14] LABS: CALCIUM 8.2 mg/dL (8.5-10.1); CREATININE 0.8 mg/dL (0.6-1.0); GFR 91.9; POTASSIUM 4.2 mmol/L (3.5-5.1)
[2018-09-15 07:21] LABS: BASO % 0 % (0-3); EOS # 0.1 x10^3/uL (0.0-0.7); EOS % 2 % (0-3); HEMATOCRIT 38.1 % (36.0-47.0); HEMOGLOBIN 12.6 g/dL (12.0-15.5); LYMPH # 2.1 x10^3/uL (1.0-4.8); LYMPH % 39 % (24-48); MEAN CORPUSCULAR HEMOGLOBIN 27 pg (25-35); MEAN CORPUSCULAR HGB CONC 33 g/dL (31-37); MEAN CORPUSCULAR VOLUME 82 fL (79-100); MONO # 0.5 x10^3/uL (0.0-1.1); MONO % 10 % (0-9); NEUT # 2.7 x10^3uL (1.8-7.7); NEUT % 49 % (31-73); PLATELET COUNT 243 x10^3/uL (140-400); RED BLOOD COUNT 4.64 x10^6/uL (3.50-5.40); RED CELL DISTRIBUTION WIDTH 13.2 % (11.5-14.5); WHITE BLOOD COUNT 5.5 x10^3/uL (4.0-11.0)
[2018-09-15] MEDS ORDERED: LISI1TAB7 PO (07:32)
[2018-09-15] MEDS ORDERED: METF10007 PO (07:35)
[2018-09-15 07:52] VITALS: BP 143/82
[2018-09-15] MEDS ORDERED: INSULIN LISPRO 300 UNITS/3 ML INSULN.PEN. SQ SCH ×2 (08:00)
[2018-09-15] MEDS ORDERED: ASPIRIN 81 MG TAB.CHEW PO SCH (08:00)
[2018-09-15 08:08] VITALS: BP 143/82
[2018-09-15] MEDS ORDERED: hydroCHLOROthiazide 12.5 MG CAPSULE PO SCH (09:00)
[2018-09-15] MEDS ORDERED: SERTRALINE 100 MG TABLET. PO SCH (09:00)
[2018-09-15] MEDS ORDERED: LISINOPRIL 10 MG TABLET PO SCH (09:00)
--- NOTE | 2018-09-15 19:29 | DS ---
DATE OF DISCHARGE: 09/15/2018 HOSPITAL COURSE: The patient is a 52-year-old -Greenland[place] female patient who was admitted to the Emergency Room with recurrent bouts of nausea and vomiting as well as diarrhea. According to her, she has vomited about 8 times and had 2 episodes of diarrhea. She also complained of abdominal pain. Her blood sugar was extremely high. She was also found to have accelerated hypertension. 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 She has been compliant with antihypertensive medication, did have flu vaccine this fall; however, there was no history of recent travel or ill contact. In any case, she was treated with IV fluid and insulin drip and she did very well. She had had no further episodes of nausea or vomiting, no diarrhea. We switched her back on her insulin and also she tolerated her diet very well and decision was made to discharge her home. I made some adjustment of her medication and explained the rationale. I increased her lisinopril to 20/25 once a day. I explained to her that the oral hypoglycemic agent is probably useless given her requirement of insulin and therefore, I recommended that she increase her metformin to 1000 mg twice a day and she use the extended release to minimize side effect and as her blood pressure and blood sugar remained much improved this morning, a decision was made to discharge her home. She was given a prescription for glucometer glucose test strips and lancet as well as a prescription for lisinopril 20/25 and metformin 1000 mg twice a day. PHYSICAL EXAMINATION: GENERAL: Prior to discharge, she looked well and was clearly in no apparent respiratory distress. No pallor, jaundice, cyanosis, or thyromegaly. No jugular venous distension. No limb edema. VITAL SIGNS: Her heart rate was 82, blood pressure 143/82, temperature was 98.2, respiratory rate was 18 and oxygen saturation was 96%. HEAD, EYES, EARS, NOSE AND THROAT: Showed normocephalic, atraumatic. NECK: Supple. HEART: Showed normal first and second sounds. No gallop, rub or murmur. CHEST: Clear to auscultation. No crepitation or rhonchi. ABDOMEN: Distended, soft, nontender. NEUROLOGIC: She was awake, alert, responding appropriately. All cranial nerves intact. She moves extremities without difficulty. She ambulates without assistance or assistive devices. LABORATORY DATA: This morning showed serum sodium 139, potassium 4.2, chloride 105, bicarbonate 25, anion gap of 9, BUN 8, creatinine 0.8, estimated GFR was 92 mL per minute. Her glucose was 278 and calcium was 8.2. Her white cell count was 5500, hemoglobin 12, hematocrit 38, MCV 82, and platelet count 243,000. FINAL DISCHARGE DIAGNOSES: 1. Acute gastroenteritis. 2. Poorly controlled hypertension. 3. She is also known to have hyperlipidemia and diabetic peripheral neuropathy. DISCHARGE MEDICATIONS: The patient was discharged to continue on her albuterol sulfate 2 puffs every 6 hours, aspirin 81 mg once a day, atorvastatin calcium 40 mg at bedtime. She is on NovoLog 40 units before meals and Levemir 60 units at bedtime. She is on lisinopril/hydrochlorothiazide 20/25, metformin 1000 mg twice a day, sertraline 100 mg at bedtime. I discontinued her glyburide and sitagliptin as probably they are useless and they are not of any affect in overall controlling her blood sugar. She was given a prescription for glucometer glucose test strip as well as lancet. CHATA SHEPARD MD DR: RACHEL/donis JOB#: [id number] / [id number]
== END 2018-09-15 09:05 | disposition home or self-care (01) | DRG 638 ==
LOC: ER 03:53 → ICU 04:00
PROVIDERS: ADMIT Internal Medicine; ATTEND Internal Medicine
DX: E11.65 Type 2 diabetes mellitus with hyperglycemia (principal); E87.2 Acidosis; K52.9 Noninfective gastroenteritis and colitis, unspecified; E11.42 Type 2 diabetes mellitus with diabetic polyneuropathy; E78.5 Hyperlipidemia, unspecified; I10 Essential (primary) hypertension; I25.10 Atherosclerotic heart disease of native coronary artery without angina pectoris; J45.909 Unspecified asthma, uncomplicated; F32.9 Major depressive disorder, single episode, unspecified; Z79.4 Long term (current) use of insulin; Z82.49 Family history of ischemic heart disease and other diseases of the circulatory system; Z90.710 Acquired absence of both cervix and uterus; Z83.3 Family history of diabetes mellitus; Z98.891 History of uterine scar from previous surgery
CPT/HCPCS: 36415; 74022; 80048; 80076; 80307; 81001; 82553; 82947; 83605; 83690; 83735; 83880; 84443; 84484; 84702; 85025; 85379; 85610; 85730; 86705; 86709; 86803; 87040; 87340; 87641; 87804; 93005; 96365; 96366; 96368; 96375; J1815; J2405; J2765; J3475; J7042; J7120; 99285-25; J7030

== ENCOUNTER 2018-12-25 04:52 | Emergency (ER) | payer OTHER ==
[~2018-12-25] VITALS: Ht 157.5 cm; Wt 102.3 kg
[~2018-12-25 04:52] MED LIST changes: +ALBU2.5V8 INH; +ASPI-630 PO; +ATOR40TA59 PO; +GLYB5TAB3 PO; +INSU100I17 SQ; +LISI1TAB3 PO; +LISI1TAB7 PO; +METF10007 PO; +SERT100T PO; +SITA1TAB7 PO
[2018-12-25 05:04] VITALS: BP 180/102
[2018-12-25] MEDS ORDERED: PHENAZOPYRIDINE 200 MG TABLET. ONE (05:10)
[2018-12-25] MEDS ORDERED: PHENAZOPYRIDINE 200 MG TABLET. PO ONE (05:15)
--- NOTE | 2018-12-25 05:27 | ED.ADGEN ---
Past History Past Medical History: Diabetes, High Cholesterol, Hypertension Past Surgical History: , Hysterectomy, Other Smoking: Non-smoker Alcohol Use: None Drug Use: None Adult General Chief Complaint Chief Complaint Dysuria HPI HPI Patient is a 53-year-old -[place] female who presents with dysuria, urinary frequency urgency and burning. Symptom onset was yesterday symptoms of gradually worsened over the past 12-24 hours. No fever chills, nausea vomiting or sweats. No flank pain. Denies history of kidney stones. Previous hysterectomy. No other acute symptoms or complaints.[] Review of Systems Review of Systems Review symptoms as per history of present illness. All other review symptoms are negative. All other systems were reviewed and found to be within normal limits, except as documented in this note. Current Medications Current Medications Current Medications Medications (Trade) Dose Ordered Sig/Arnel Start Time Stop Time Status Last Admin Dose Admin Phenazopyridine HCl (Pyridium) 200 mg 1X ONCE 12/25/18 05:15 12/25/18 05:16 UNV 12/25/18 05:12 200 MG Allergies Allergies Allergies Coded Allergies Type Severity Reaction Last Updated Verified I S O L A T I O N *CONTACT* Allergy Unknown 09/15/18 Yes NKMA Allergy Unknown 09/15/18 Yes Physical Exam Physical Exam Constitutional: Well developed, well nourished, moderate discomfort secondary to pain. [] HENT: Normocephalic, atraumatic, bilateral external ears normal, oropharynx moist, no oral exudates, nose normal. [] Eyes: PERRLA, EOMI, conjunctiva normal, no discharge. [] Neck: Normal range of motion, no tenderness, supple, no stridor. [] Cardiovascular:Heart rate regular rhythm, no murmur [] Lungs & Thorax: Bilateral breath sounds clear to auscultation [] Abdomen: Bowel sounds normal, soft, suprapubic pain, no tenderness. [] Skin: Warm, dry, no erythema, no rash. [] Back: No tenderness, no CVA tenderness. [] Extremities: No tenderness, no cyanosis, no clubbing, ROM intact, no edema. [] Neurologic: Alert and oriented X 3, normal motor function, normal sensory function, no focal deficits noted. [] Psychologic: Affect normal, judgement normal, mood normal. [] Current Patient Data Vital Signs Vital Signs Date Time Temp Pulse Resp B/P (MAP) Pulse Ox O2 Delivery O2 Flow Rate FiO2 12/25/18 05:04 99.4 84 20 98 Room Air EKG EKG [] Radiology/Procedures Radiology/Procedures [] Course & Med Decision Making Course & Med Decision Making Pertinent Labs and Imaging studies reviewed. (See chart for details) [UA dip positive for large amounts of blood and leukocyte estrace. First dose of antibiotics given in the ED. Urine culture sent] Final Impression Final Impression 1. Hemorrhagic cystitis[] Dragon Disclaimer Dragon Disclaimer This electronic medical record was generated, in whole or in part, using a voice recognition dictation system. HAILEY CESPEDES DO December 25, 2018 05:27
[2018-12-25] MEDS ORDERED: CIPR500T94 PO (05:30)
[2018-12-25] MEDS ORDERED: PHEN100T82 PO (05:30)
[2018-12-25] MEDS ORDERED: CIPROFLOXACIN HCL 500 MG TABLET PO ONE (05:30)
[2018-12-25] MEDS ORDERED: CIPROFLOXACIN HCL 500 MG TABLET ONE (05:36)
[2018-12-25 05:47] LABS: BACTERIA,URINE FEW /HPF (0-FEW); BILIRUBIN,URINE NEG (NEG); CLARITY,URINE CLOUDY; COLOR,URINE AMBER; GLUCOSE,URINE NEG (NEG); NITRITE,URINE NEG (NEG); RBC,URINE >40 /HPF (0-2); SQUAMOUS EPITHELIAL CELL,UR FEW /LPF; UROBILINOGEN,URINE 1 mg/dL (0.2 mg/dL)
== END 2018-12-25 05:40 | disposition home or self-care (01) ==
LOC: ER 04:52
DX: N30.80 Other cystitis without hematuria (principal); E11.9 Type 2 diabetes mellitus without complications; E78.00 Pure hypercholesterolemia, unspecified; I10 Essential (primary) hypertension; Z98.890 Other specified postprocedural states; Z90.710 Acquired absence of both cervix and uterus; Z91.041 Radiographic dye allergy status
CPT/HCPCS: 81001; 87086; 87186; 99284

== ENCOUNTER 2019-05-02 13:31 | Emergency (ER) | payer SELFPAY ==
[~2019-05-02] VITALS: Ht 157.5 cm; Wt 103.4 kg
[~2019-05-02 13:31] MED LIST changes: +CIPR500T94 PO; +LISI1TAB20 PO; +LISI1TAB23 PO; -LISI1TAB3 PO; -LISI1TAB7 PO; +PHEN100T82 PO
--- NOTE | 2019-05-02 13:58 | PHYS DOC ---
Past History Past Medical History: Diabetes, High Cholesterol, Hypertension Past Surgical History: , Hysterectomy, Other Smoking: Non-smoker Alcohol Use: None Drug Use: None Adult General Chief Complaint Chief Complaint: ABSCESS HPI HPI 53-year-old female presents to the emergency department with complaints of abscess. Patient states she has history of diabetes, has noticed multiple boils popping up. She works as a CABLEMAN. She denies any fever, nausea, vomiting. Today her primary complaint is of an abscess on her head. The area is hard, there is no fluctuance appreciated, no drainage on examination. Review of Systems Review of Systems Constitutional: Denies fever or chills [] HENT: Denies nasal congestion or sore throat [] Respiratory: Denies cough or shortness of breath [] Cardiovascular: No additional information not addressed in HPI [] GI: Denies abdominal pain, nausea, vomiting, bloody stools or diarrhea [] Musculoskeletal: Denies back pain or joint pain [] Integument: abscess to back of head Neurologic: Denies headache, focal weakness or sensory changes [] Endocrine: Denies polyuria or polydipsia [] All other systems were reviewed and found to be within normal limits, except as documented in this note. Allergies Allergies Allergies Coded Allergies Type Severity Reaction Last Updated Verified I S O L A T I O N *CONTACT* Allergy Unknown 09/15/18 Yes NKMA Allergy Unknown 09/15/18 Yes Physical Exam Physical Exam Constitutional: Well developed, well nourished, no acute distress, non-toxic appearance. [] HENT: Normocephalic, atraumatic, bilateral external ears normal, oropharynx moist, no oral exudates, nose normal. [] Eyes: PERRLA, EOMI, conjunctiva normal, no discharge. [] Neck: Normal range of motion, no tenderness, supple, no stridor. [] Cardiovascular:Heart rate regular rhythm, no murmur [] Lungs & Thorax: Bilateral breath sounds clear to auscultation [] Abdomen: Bowel sounds normal, soft, no tenderness, no masses, no pulsatile masses. [] Skin: Warm, dry, no erythema, no rash. [] Extremities: No edema appreciated, small abscess appreciated to back of head, no fluctuance or drainage appreciated Neurologic: Alert and oriented X 3, normal motor function, normal sensory function, no focal deficits noted. [] Psychologic: Affect normal, judgement normal, mood normal. [] Current Patient Data Vital Signs Temperature (Fahrenheit): * 97.9 degrees F (97.6-99.5) Patient Temperature * 97.9 degrees F (97.5-99.5) Temperature Source * Temporal Artery Scan Blood Pressure Systolic * 175 mm Hg (100-140) H Blood Pressure Diastolic * 92 mm Hg (60-100) Blood Pressure Mean EKG EKG [] Radiology/Procedures Radiology/Procedures [] Course & Med Decision Making Course & Med Decision Making Pertinent Labs and Imaging studies reviewed. (See chart for details) [] Dragon Disclaimer Dragon Disclaimer This electronic medical record was generated, in whole or in part, using a voice recognition dictation system. Departure Departure: Impression: Primary Impression: Abscess Disposition: 01 HOME, SELF-CARE Condition: STABLE Referrals: PCP,NO (PCP) Scripts Sulfamethoxazole/Trimethoprim (BACTRIM DS TABLET) 1 Each Tablet 1 TAB PO BID for infection, #14 TAB Prov: ANNMARIE PHILLIPS MD 05/02/19 ANNMARIE PHILLIPS MD May 02, 2019 13:58
[2019-05-02] MEDS ORDERED: SULF1TAB24 PO (14:02)
[2019-05-02 14:20] VITALS: BP 147/90
== END 2019-05-02 14:20 | disposition home or self-care (01) ==
LOC: ER 13:31
DX: L02.811 Cutaneous abscess of head [any part, except face] (principal); E11.9 Type 2 diabetes mellitus without complications; E78.00 Pure hypercholesterolemia, unspecified; I10 Essential (primary) hypertension; Z91.041 Radiographic dye allergy status
CPT/HCPCS: 99283